=== PATIENT | female | born 1990 | race American Indian/Alaskan Native ===

== ENCOUNTER 2019-10-23 02:30 | Emergency (ER) | payer OTHER ==
[2019-10-23 03:09] VITALS: BP 127/82
[2019-10-23] MEDS ORDERED: BUPIVACAINE/PF (0.5%) 5 MG/1 ML 10 ML VIAL INFILTRATI ONE (04:41)
[2019-10-23] MEDS ORDERED: IBUPROFEN 800 MG TAB PO ONE (04:41)
--- NOTE | 2019-10-23 04:43 | Emergency Department Report ---
Abscess [place] [facility] Chief Complaint: Skin/Abscess/Foreign Body Stated Complaint: BOIL ON BUTTOCK Time Seen by Provider: 10/23/19 04:18 Duration: 4 Days Home Medications: Previous Rx's Medication Instructions Recorded Last Taken Type Clindamycin [Clindamycin CAP] 300 mg PO Q8H 10 Days #30 cap 10/23/19 Unknown Rx Ibuprofen [Motrin] 800 mg PO Q8HR PRN #12 tablet 10/23/19 Unknown Rx Allergies/Adverse Reactions: Allergies Allergy/AdvReac Type Severity Reaction Status Date / Time peanut Allergy Swelling Verified 10/23/19 04:40 ED Review of Systems ROS: Stated complaint: BOIL ON BUTTOCK Other details as noted in HPI ED Past Medical Hx - Past Medical History Previous Medical History?: No - Surgical History Past Surgical History?: No - Social History Smoking Status: Never Smoker Substance Use Type: None - Medications Home Medications: Home Medications Medication Instructions Recorded Confirmed Last Taken Type Clindamycin [Clindamycin CAP] 300 mg PO Q8H 10 Days #30 cap 10/23/19 Unknown Rx Ibuprofen [Motrin] 800 mg PO Q8HR PRN #12 tablet 10/23/19 Unknown Rx ED Abscess Boil Physical Exam - Exam General: Vital signs noted. No distress. Alert and acting appropriately. ED Course Vital Signs 10/23/19 02:47 Temperature 99.0 F Pulse Rate 86 Respiratory 18 Rate Blood Pressure 127/82 O2 Sat by Pulse 99 Oximetry Critical care attestation.: If time is entered above; I have spent that time in minutes in the direct care of this critically ill patient, excluding procedure time. ED Disposition Clinical Impression: Abscess and cellulitis of gluteal region, Encounter for incision and drainage procedure Disposition: TO HOME OR SELFCARE Is pt being admited?: No Does the pt Need Aspirin: No Condition: Stable Instructions: Abscess Incision and Drainage (ED), Cellulitis (ED), Heat Pack Application (ED) Additional Instructions: Please return in 3 days to have packing removed from abscess site. If condition worsens to include is increased fever that does not reduce with Motrin, increase in redness and swelling and increased pain, return to the emergency room otherwise follow discharge instructions. Take antibiotic . Take Motrin for fever and pain and please do not take on empty stomach as this medication cause irritation to stomach lining Please keep packing in until you are seen and 3 days. Apply warm compresses to affected area 3 times a day. Please see discharge instructions for details Referrals: PRIMARY CARE,MD [Primary Care Provider] - 2-3 Days return to, ED [Other] - 10/26/19 (Packing removal and reassessment of wound in 72 hours.) Forms: Work/School Release Form(ED), Accompanied Note
== END 2019-10-23 06:16 | disposition home or self-care (01) ==
LOC: ED 02:30
DX: L02.31 Cutaneous abscess of buttock (principal)
CPT/HCPCS: 99282

== ENCOUNTER 2019-10-26 18:45 | Emergency (ER) | payer OTHER ==
[2019-10-26 18:54] VITALS: BP 127/79
== END 2019-10-26 21:15 | disposition left against medical advice (07) ==
LOC: ED 18:45
DX: Z48.01 Encounter for change or removal of surgical wound dressing (principal); Z53.21 Procedure and treatment not carried out due to patient leaving prior to being seen by health care provider